=== PATIENT | female | born 1965 | race Two or more races ===

== ENCOUNTER 2017-04-12 20:34 | Emergency (ER) | payer MEDICAID ==
[~2017-04-12] VITALS: Ht 154.9 cm; Wt 74.7 kg
[~2017-04-12 20:34] MED LIST: HYDR-569 PO; SUMA25TA35 PO; TRAM50TA2 PO
[2017-04-12] MEDS ORDERED: morphine 4 MG/ML inj SYRINge IV ONE (21:15)
[2017-04-12] MEDS ORDERED: ondansetron/PF 4mg/2ml inj IV ONE (21:15)
[2017-04-12] MEDS ORDERED: morphine 2 MG/ML inj. syringe IV ONE (23:20)
[2017-04-13] MEDS ORDERED: HYDR-3965 PO (01:11)
[2017-04-13] MEDS ORDERED: IBUP-1984 PO (01:11)
[2017-04-13 01:37] VITALS: BP 132/90
== END 2017-04-13 01:39 | disposition home or self-care (01) ==
LOC: ER 20:35
DX: S70.02XA Contusion of left hip, initial encounter (principal); G43.909 Migraine, unspecified, not intractable, without status migrainosus; Z98.890 Other specified postprocedural states; W01.0XXA Fall on same level from slipping, tripping and stumbling without subsequent striking against object, initial encounter; Y93.01 Activity, walking, marching and hiking; Y92.511 Restaurant or cafe as the place of occurrence of the external cause; Y99.8 Other external cause status
CPT/HCPCS: 73502; 73552; 73564; 73700; 96374; 96375; 96376; 99284; J2270; J2405

== ENCOUNTER 2019-11-13 11:25 | Emergency (ER) | payer MEDICAID, OTHER ==
[~2019-11-13] VITALS: Ht 154.9 cm; Wt 7.3 kg
[~2019-11-13 11:25] MED LIST changes: +HYDR-4383 PO; -HYDR-569 PO
[2019-11-13 11:50] VITALS: BP 154/107
[2019-11-13] MEDS ORDERED: HYDROcodone/acetaminophen 5mg/325mg tablet PO ONE (13:10)
[2019-11-13] MEDS ORDERED: HYDR-3965 PO (13:11)
== END 2019-11-13 13:44 | disposition home or self-care (01) ==
LOC: ER 11:26
DX: S92.321A Displaced fracture of second metatarsal bone, right foot, initial encounter for closed fracture (principal); G43.909 Migraine, unspecified, not intractable, without status migrainosus; Z98.890 Other specified postprocedural states; Z79.899 Other long term (current) drug therapy; W22.8XXA Striking against or struck by other objects, initial encounter; Y93.01 Activity, walking, marching and hiking; Y92.89 Other specified places as the place of occurrence of the external cause; Y99.8 Other external cause status
CPT/HCPCS: 73630; 99284